=== PATIENT | female | born 1960 | race Caucasian/White ===

== ENCOUNTER 2017-09-12 10:12 | Emergency (ER) | payer BC ==
[2017-09-12] MEDS ORDERED: Adacel (T-DAP) 0.5 ML VIAL ONE (11:32)
[2017-09-12] MEDS ORDERED: Bacitracin Zinc 1 Packet ONE (12:23)
--- NOTE | 2017-09-12 12:24 | CT ---
CERVICAL SPINE CT WITHOUT IV CONTRAST: Date: 09/12/17 HISTORY: 57-year-old female with history of neck injury following a fall this morning, hitting head on edge of counter. Patient complains of nausea. FINDINGS: There are some disc osteophytosis changes, particularly at C5-C6. No acute fracture or facet dislocat ion. IMPRESSION: No fracture or facet dislocation. Cervical spondylosis. POS: [facility]
--- NOTE | 2017-09-12 12:31 | CT ---
CT FACIAL BONES: Date: 09/12/17 Multiple axial tomograms obtained through facial bones with multiplanar reconstruction. INDICATION: Fall with injury to face. Laceration left eyebrow. FINDINGS: There is mild subcutaneous edema over the left orbit consistent with history of laceration at this lo cation. Nasal bones appear intact. Orbits appear intact. Lamina papyracea intact. Maxilla appears intact. The paranasal sinuses are well aerated. There is a mucus retention cyst in the floor of the left maxilla ry antrum measuring approximately 1.5 cm. The zygomatic arches are intact. The mandible appears intact. IMPRESSION: No evidence of facial bone fracture. POS: [facility]
== END 2017-09-12 12:36 | disposition home or self-care (01) ==
LOC: ERS 10:12
DX: S01.81XA Laceration without foreign body of other part of head, initial encounter (principal); E11.9 Type 2 diabetes mellitus without complications; E78.5 Hyperlipidemia, unspecified; I10 Essential (primary) hypertension; G30.9 Alzheimer's disease, unspecified; F02.80 Dementia in other diseases classified elsewhere, unspecified severity, without behavioral disturbance, psychotic disturbance, mood disturbance, and anxiety; Z79.899 Other long term (current) drug therapy; Z79.82 Long term (current) use of aspirin; W18.2XXA Fall in (into) shower or empty bathtub, initial encounter
CPT/HCPCS: 12013; 70486; 72125; 90471; 90715